=== PATIENT | female | born 1990 | race Caucasian/White ===

== ENCOUNTER 2019-09-30 05:35 | Emergency (ER) | payer OTHER ==
[~2019-09-30] VITALS: Ht 154.9 cm; Wt 86.2 kg
[2019-09-30] MEDS ORDERED: ONDANSETRON HCL INJ 2MG/ML 2ML 2 MG/ML VIAL IV STA (05:39)
[2019-09-30] MEDS ORDERED: KETOROLAC TROMETHAMINE 30 MG/ML VIAL IV STA (05:39)
[2019-09-30] MEDS ORDERED: SODIUM CHLORIDE 0.9% 1000ML 1,000 ML IV SCH (05:45)
[2019-09-30] MEDS ORDERED: KETOROLAC TROMETHAMINE 30 MG/ML VIAL ONE (05:51)
[2019-09-30] MEDS ORDERED: ONDANSETRON HCL INJ 2MG/ML 2ML 2 MG/ML VIAL ONE (05:51)
[2019-09-30] MEDS ORDERED: SODIUM CHLORIDE 0.9% 1000ML 1,000 ML ONE (05:51)
[2019-09-30] MEDS ORDERED: SODIUM CHLORIDE 0.9% 1000ML 1,000 ML IV ONE (06:00)
[2019-09-30 06:05] LABS: BASOPHILS # (AUTO) 0.1 (0.0-0.1); BASOPHILS % 0.6 % (0.0-1.0); EOSINOPHILS # (AUTO) 0.2 (0.0-0.4); EOSINOPHILS % 1.7 % (0.0-6.0); HEMATOCRIT 41.9 % (34.2-44.1); HEMOGLOBIN 13.8 g/dL (12.0-16.0); LYMPHOCYTES # (AUTO) 2.2 (1.0-3.2); LYMPHOCYTES % 20.4 % (18.0-39.1); MEAN CORPUSCULAR HEMOGLOBIN 28.6 pg (28-32); MEAN CORPUSCULAR HGB CONC 32.9 g/dL (31-35); MEAN CORPUSCULAR VOLUME 86.7 fL (81-99); MONOCYTES # (AUTO) 0.5 (0.2-0.8); MONOCYTES % 4.4 % (4.4-11.3); NEUTROPHILS # (AUTO) 7.7 (2.1-6.9); NEUTROPHILS % 72.1 % (38.7-80.0); PLATELET COUNT 348 x10e3/uL (140-360); RED BLOOD COUNT 4.83 x10e6/uL (3.6-5.1); RED CELL DISTRIBUTION WIDTH 14.4 % (11.7-14.4)
[2019-09-30 06:37] LABS: CLARITY,URINE CLEAR (CLEAR); COLOR,URINE YELLOW (YELLOW); KETONES,URINE NEGATIVE (NEGATIVE); LEUKOCYTE ESTERASE ,URINE NEGATIVE (NEGATIVE); NITRITE,URINE NEGATIVE (NEGATIVE); PROTEIN,URINE DIPSTICK 1+ (NEGATIVE); URINE UROBILINOGEN 0.2 mg/dL (0.2 - 1)
[2019-09-30 06:38] LABS: ALANINE AMINOTRANSFERASE 20 IU/L (0-55); ALBUMIN 3.7 g/dL (3.5-5.0); ALBUMIN/GLOBULIN RATIO 1.2 (0.8-2.0); ALKALINE PHOSPHATASE 92 IU/L (40-150); ANION GAP 14.3 mmol/L (8-16); BLOOD UREA NITROGEN 9 mg/dL (7-26); BUN/CREATININE RATIO 10 (6-25); CARBON DIOXIDE 21 mmol/L (22-29); CHLORIDE 110 mmol/L (98-107); CREATININE, SERUM 0.91 mg/dL (0.57-1.11); EST GLOMERULAR FILTRATION RATE > 60 ML/MIN (60-); GLUCOSE 162 mg/dL (74-118); POTASSIUM 4.3 mmol/L (3.5-5.1); SODIUM 141 mmol/L (136-145)
[2019-09-30 06:38] LABS: BILIRUBIN,URINE NEGATIVE (NEGATIVE)
[2019-09-30 06:46] LABS: PREGNANCY TEST, URINE NEGATIVE (NEGATIVE)
[2019-09-30 06:50] LABS: BACTERIA,URINE MODERATE /HPF; RBC,URINE >50 /HPF (0-5); WBC,URINE (MAN) 0-5 /HPF (0-5)
[2019-09-30 06:51] LABS: EPITHELIAL CELLS,URINE FEW /LPF
--- NOTE | 2019-09-30 07:24 | Diagnostic Imaging Report ---
CT Abdomen and Pelvis without contrast INDICATION: Right flank pain, nausea, vomiting, ^RLq PAIN TECHNIQUE: Thin collimation axial images obtained from the diaphragm to the level of the pubic symphysis without nonionic intravenous contrast. Dose reduction techniques used: Automated exposure control, adjustment of the mAs and/or kVp according to patient size, standardized low-dose protocol, and/or iterative reconstruction technique. RADIATION DOSE: Total DLP: 674.7 mGy*cm Estimated effective dose: (DLP x 0.015 x size factor) mSv CTDIvol has been reviewed. It is below the limits set by the Radiation Protocol Committee (RPC). COMPARISON: None. ABDOMEN FINDINGS: Lung Bases: Clear. The visualized portion of the mediastinum is normal. Liver: Decreased attenuation suggestive of steatosis. No mass. Gallbladder: Present and appears normal. No ductal dilatation. Pancreas: Normal attenuation without mass. Spleen: Normal size without mass. Adrenal Glands: No evidence for mass. Kidneys: Right: Mild renal edema. No inflammation. Multiple intrarenal calculi measure less than 5 mm. No cortical mass or hydronephrosis Left: Multiple intrarenal calculi measure less than 5 mm. No cortical mass or hydronephrosis Lymph Nodes: No lymphadenopathy. Aorta: Normal in diameter. PELVIS FINDINGS: Bowel: Stomach: Normal. Small Bowel: Normal in caliber with normal wall thickness. Large Bowel: Normal in caliber with normal wall thickness. Appendix: Normal. Bladder: Contains a 4 mm dependent calculus. Ureters: The right ureter is mildly distended. No calculus. The left ureter is normal. The uterus is present and normal in morphology. No adnexal mass. Bones: Unremarkable for age. Soft tissues: Soft tissue structure in the medial left breast measures 1.2 x 2.2 cm. IMPRESSION: 1. Bilateral intrarenal calculi. Mild right renal edema and ureteral distention with a dependently layering calculus in the bladder suggestive of recently passed stone. 2. Mild steatosis. 3. Soft tissue mass in the medial right breast should be further characterized with ultrasound. Signed by: Dr. Odilia Macedo MD on 09/30/2019 7:20 AM
[2019-09-30] MEDS ORDERED: IBU600 MG PO (07:35)
[2019-09-30] MEDS ORDERED: ZOFRAN4 MG PO (07:35)
== END 2019-09-30 07:50 | disposition home or self-care (01) ==
LOC: ER 05:35
DX: R10.31 Right lower quadrant pain (principal); R11.0 Nausea; N20.0 Calculus of kidney
CPT/HCPCS: 36415; 74176; 80053; 81001; 81025; 85025; 96374; 99284; J1885; J2405; J7030